=== PATIENT | male | born 1950 | race Caucasian/White ===

== ENCOUNTER 2017-05-19 09:13 | Emergency (ER) | payer MEDICARE, OTHER ==
[~2017-05-19] VITALS: Ht 170.2 cm; Wt 95.7 kg
[~2017-05-19 09:13] MED LIST: ALL DAY ALLERGY10 MG PO; MONTELUKAST SOD10 MG PO; OMEPRAZOLE20 MG PO; PERCOCET 7.5-31 EACH PO; PRAMIPEXOLE DI1.5 MG PO; SYMBICORT 16010.2 GM INH; TUMS200 MG PO
--- OUTSIDE RECORDS SUMMARY | 2017-05-19 09:21 | XMS | Clinical Summary ---
Demographics + + + | Address | [address] | | | [place] [address] | + + + | Home Phone | | + + + | Preferred Language | Unknown | + + + | Marital Status | | + + + | Advent Affiliation | 1028 | + + + | Race | Unknown | + + + | Ethnic Group | Unknown | + + + Author + + + | Author | [facility] | + + + | Organization | [facility] | + + + | Address | Unknown | + + + | Phone | Unavailable | + + + Support + + + + + | Name | Relationship | Address | Phone | + + + + + | Latonya Dumont | ECON | [address] | | | | | [place] | | | | | [address] | | + + + + + Care Team Providers + +------+ + | Care Vessel Slagman Name | Role | Phone | + +------+ + | Baldo Bennett DO | PP | | + +------+ + Allergies No Known Allergies Current Medications + + +-------+---------+------+------+-------+ | Prescription | Sig. | Disp. | Refills | Star | End | Statu | | | | | | t | Date | s | | | | | | Date | | | + + +-------+---------+------+------+-------+ | omeprazole | Take 20 mg by mouth | | | | | Activ | | (PRILOSEC) 20 MG | every morning before | | | | | e | | capsule | breakfast. | | | | | | + + +-------+---------+------+------+-------+ | cetirizine | Take 10 mg by mouth | | | | | Activ | | (ZYRTEC) 10 MG | daily. | | | | | e | | tablet | | | | | | | + + +-------+---------+------+------+-------+ | pramipexole | Take 1.5 mg by mouth | | | | | Activ | | (MIRAPEX) 1.5 MG | 3 (three) times | | | | | e | | tablet | daily. | | | | | | + + +-------+---------+------+------+-------+ | montelukast | Take 10 mg by mouth | | | | | Activ | | (SINGULAIR) 10 MG | nightly. | | | | | e | | tablet | | | | | | | + + +-------+---------+------+------+-------+ | calcium carbonate | Take 200 mg by mouth | | | | | Activ | | 1250 MG capsule | as needed. | | | | | e | + + +-------+---------+------+------+-------+ Active Problems Not on file Social History + +-------+ +--------+------+ | Tobacco Use | Types | Packs/Day | Years | Date | | | | | Used | | + +-------+ +--------+------+ | Former Smoker | | | | | + +-------+ +--------+------+ + +---+---+---+ | Smokeless Tobacco: | | | | | Never Used | | | | + +---+---+---+ + + +---------+ + | Alcohol Use | Drinks/We | oz/Week | Comments | | | ek | | | + + +---------+ + | No | | | | + + +---------+ + + + + | Sex Assigned at | Date Recorded | | | | + + + | Not on file | | + + + Last Filed Vital Signs + + + + | Vital Sign | Reading | Time Taken | + + + + | Blood Pressure | 171/83 | 01/25/2015 11:47 PM PST | + + + + | Pulse | 60 | 01/25/2015 11:47 PM PST | + + + + | Temperature | 36.4 C (97.5 F) | 01/25/2015 11:47 PM PST | + + + + | Respiratory Rate | 16 | 01/25/2015 11:47 PM PST | + + + + | Oxygen Saturation | 94% | 01/25/2015 11:47 PM PST | + + + + | Inhaled Oxygen | - | - | | Concentration | | | + + + + | Weight | 91 kg (200 lb 9.9 | 01/25/2015 8:44 PM PST | | | oz) | | + + + + | Height | 170.2 cm (5' 7") | 01/25/2015 8:46 PM PST | + + + + | Body Mass Index | 31.42 | 01/25/2015 8:44 PM PST | + + + + Plan of Treatment Not on file Results Not on filefrom Last 3 Months Insurance + +--------+ +------+-------+ + | Payer | Benefi | Subscriber | Type | Phone | Address | | | t Plan | ID | | | | | | / | | | | | | | Group | | | | | + +--------+ +------+-------+ + | PREMERA | PREMER | xxxxxxxxxxx | | | [address] [address] | | | A BLUE | x | | | [place], [place] | | | CARD | | | | [address] | + +--------+ +------+-------+ + | MEDICARE | MEDICA | xxxxxxxxxx | | | [address] | | | RE | | | | [place] [phone] | | | IP-OP | | | | | + +--------+ +------+-------+ + + +--------+ +--------+ + + | Guarantor Name | Accoun | Relation to | Date | Phone | Billing Address | | | t Type | Patient | of | | | | | | | | | | + +--------+ +--------+ + + | ROSMERY DUMONT | Person | Self [birth year] Home: | [address] | | | al/Fam | | 1951 | [phone] | [place] | | | [place] | | | [phone] | [phone] | + +--------+ +--------+ + +
--- OUTSIDE RECORDS SUMMARY | 2017-05-19 09:21 | XMS | Encounter Summary ---
Demographics + + + | Address | [address] | | | [place] [address] | + + + | Home Phone | | + + + | Preferred Language | Unknown | + + + | Marital Status | | + + + | Baptism Affiliation | 1028 | + + + | Race | Unknown | + + + | Ethnic Group | Unknown | + + + Author + + + | Author | [facility] | | | and [place] | + + + | Organization | [facility] | | | and [place] | + + + | Address | Unknown | + + + | Phone | Unavailable | + + + Support + + +---------+ + | Name | Relationship | Address | Phone | + + +---------+ + | Latonya Dumont | ECON | Unknown | | + + +---------+ + Care Team Providers + +------+ + | Care Cold Storage Superintendent Name | Role | Phone | + +------+ + | Tony Bennett DO | PCP | Unavailable | + +------+ + Reason for Visit + + + | Reason | Comments | + + + | Medication Refill | | + + + Encounter Details +--------+--------+ + + + | Date | Type | Department | Care Team | Description | +--------+--------+ + + + | 03/11/ | Refill | [facility] [place] | Lakhwinder Harris, | Medication Refill | | 2018 | | [address]ULMONARY [address] | [address] | | | | | [place], | [place], [place] | | | | | [place] [address] | [place], [place] | | | | | [phone] | [address] | | | | | | | | +--------+--------+ + + + Social History + + + +--------+ + | Tobacco Use | Types | Packs/Day | Years | Date | | | | | Used | | + + + +--------+ + | Former Smoker | Cigarettes | 1 | 50 | 06/03/1964 - | | | | | | 06/03/2012 | + + + +--------+ + + +------+---+ + | Smokeless Tobacco: | Chew | | Quit: | | Former User | | | 08/04/19 | | | | | 11 | + +------+---+ + + + +---------+ + | Alcohol Use | Drinks/We | oz/Week | Comments | | | ek | | | + + +---------+ + | No | 0 | 0.0 | | | | Standard | | | | | drinks or | | | | | | | | | | equivalen | | | | | t | | | + + +---------+ + + + + | Sex Assigned at | Date Recorded | | | | + + + | Not on file | | + + + as of this encounter Plan of Treatment Not on fileas of this encounter Visit Diagnoses + + | Diagnosis | + + | Extrinsic asthma, severe persistent, uncomplicated | + +"
--- OUTSIDE RECORDS SUMMARY | 2017-05-19 09:21 | XMS | Clinical Summary ---
Demographics + + + | Address | [address] | | | [place] [address] | + + + | Home Phone | | + + + | Preferred Language | Unknown | + + + | Marital Status | | + + + | Mandaen Affiliation | 1028 | + + + | Race | Unknown | + + + | Ethnic Group | Unknown | + + + Author + + + | Author | [facility] | | | and [place] | + + + | Organization | [facility] | | | and [place] [...] Team Providers + +------+ + | Care Hack Saw Operator Name | Role | Phone | + +------+ + | Tony Bennett DO | PP | Unavailable | + +------+ + Allergies No Known Allergies Current Medications + + +---------+---------+------+------+-------+ | Prescription | Sig. | Disp. | Refills | Star | End | Statu | | | | | | t | Date | s | | | | | | Date | | | + + +---------+---------+------+------+-------+ | pramipexole | Take 1.5 mg by mouth | | | | | Activ | | (MIRAPEX) 1.5 MG | Daily. | | | | | e | | tablet | | | | | | | + + +---------+---------+------+------+-------+ | cetirizine | TAKE ONE TABLET BY | 30 | 3 | 06/2 | | Activ | | (ZYRTEC) 10 mg | MOUTH EVERY DAY | tablet | | 2/20 | | e | | tablet | | | | 17 | | | + + +---------+---------+------+------+-------+ | tamsulosin | Take 0.4 mg by mouth | | | 11/ | | Activ | | (FLOMAX) 0.4 mg CAPS | daily (after | | | 3/20 | | e | | | breakfast). | | | 17 | | | + + +---------+---------+------+------+-------+ | SYMBICORT 80-4.5 | INHALE 2 PUFFS TWICE | 3 | 1 | 01/1 | | Activ | | MCG/ACT inhaler | DAILY | Inhaler | | 6/20 | | e | | | | | | 18 | | | + + +---------+---------+------+------+-------+ | albuterol (PROAIR | Inhale 2 puffs into | 3 | 1 | / | | Activ | | HFA) 90 mcg/puff | the lungs every 4 | Inhaler | | 6/20 | | e | | inhalerIndications: | hours as needed for | | | 18 | | | | Extrinsic asthma, | Shortness of Breath. | | | | | | | severe persistent, | | | | | | | | uncomplicated | | | | | | | + + +---------+---------+------+------+-------+ Active Problems + + + | Problem | Noted Date | + + + | Moderate persistent asthma without complication | 02/25/2017 | + + + | ALLERGIC RHINITIS DUE TO POLLEN | | + + + Resolved Problems + +--------+ + | Problem | Noted | Resolved | | | Date | Date | + +--------+ + | ASTHMA, EXTRINSIC | | | | | | 8 | + +--------+ + Encounters +--------+---------+ + + + | Date | Type | Specialty | Care Team | Description | +--------+---------+ + + + | 03/11/ | Refill | | Lakhwinder Harris, | Medication Refill | | 2017 | | | MD | | +--------+---------+ + + + | 02/28/ | Refill | | Lakhwinder Harris, | Medication Refill | | 2017 | | | MD | | +--------+---------+ + + + | 02/25/ | Office | | Lakhwinder Harris, | Moderate persistent | | 2018 | Visit | | MD | asthma without | | | | | | complication | | | | | | (Primary Dx); Need | | | | | | for pneumococcal | | | | | | vaccine | +--------+---------+ + + + from Last 3 Months Immunizations + + + + | Name | Dates Previously Given | Next Due | + + + + | INFLUENZA 63 Y OR >, | 11/06/2016, 12/14/2015, 12/03/2014 | | | TRIVALENT HIGH-DOSE | | | + + + + | PNEUMOCOCCAL | 12/23/2014 | | | CONJUGATE 13-VALENT | | | | (PCV13) | | | + + + + | PNEUMOCOCCAL | 02/25/2017, 11/23/2010 | | | POLYSACCHARIDE | | | | 23-VALENT (PPSV23) | | | + + + + | TDAP, (ADOL/ADULT) | 10/21/2012 | | + + + + | ZOSTER, 1 DOSE | 09/30/2012 | | | (ADULT) | | | + + + + Family History + + +------+ + | Medical History | Relation | Name | Comments | + + +------+ + | Diabetes | Brother | | | + + +------+ + | Diabetes | Brother | | | + + +------+ + | Stroke | Father | | | + + +------+ + | Diabetes | Mother | | | + + +------+ + | Stroke | Mother | | | + + +------+ + | Asthma | Sister | | | + + +------+ + | Diabetes | Sister | | | + + +------+ + | Diabetes | Sister | | | + + +------+ + + +------+ + + | Relation | Name | Status | Comments | + +------+ + + | Brother | | | | + +------+ + + | Brother | | | | + +------+ + + | Father | | | | + +------+ + + | Mother | | | | + +------+ + + | Sister | | Alive | | + +------+ + + | Sister | | Alive | | + +------+ + + Social History + + + [...] 11 | + +------+---+ + + + | Tobacco Cessation: Counseling Given: No | + + + + +---------+ + | Alcohol [...] + + + | Blood Pressure | 124/74 | 02/25/20171440 PST | + + + + | Pulse | 72 | 02/25/20171440 PST | + + + + | Temperature | 36.6 C (97.8 F) | 12/20/20144 PST | + + + + | Respiratory Rate | 16 | 12/20/20144 PST | + + + + | Oxygen Saturation | 96% | 02/25/20171440 PST | + + + + | Inhaled Oxygen | - | - | | Concentration | | | + + + + | Weight | 97.3 kg (214 lb 8.1 | 02/25/20171440 PST | | | oz) | | + + + + | Height | 170.2 cm (5' 7") | 02/25/20171440 PST | + + + + | Body Mass Index | 33.6 | 02/25/20171440 PST | + + + + Plan of Treatment + + + + + | Health Maintenance | Due Date | Last Done | Comments | + + + + + | Hepatitis C | | | | | Screening | 9 | | | + + + + + | COLON CANCER | | | | | SCREENING | 9 | | | | (COLONOSCOPY EVERY | | | | | 10 YEARS 50-75) | | | | + + + + + | Vaccine: | | 10/21/2012 | | | Dtap/Tdap/Td (2 - | 3 | | | | Td) | | | | + + + + + | Vaccine: Zoster | Completed | 09/30/2012 | | + + + + + | Vaccine: Influenza | Completed | 11/06/2016, 12/14/2015, | | | | | 12/03/2014 | | + + + + + | Vaccine: | Completed | 02/25/2017, 12/23/2014, | | | Pneumococcal 65+ | | 11/23/2010 | | | Low/Medium Risk | | | | + + + + + Results Not on filefrom Last 3 Months Insurance + +--------+ +--------+ +---------+ | Payer | Benefi | Subscriber | Type | Phone | Address | | | t Plan | ID | | | | | | / | | | | | | | Group | | | | | + +--------+ +--------+ +---------+ | MEDICARE | MEDICA | xxxxxxxxxx | Medica | [phone] | | | RE | | re | [phone] | | | | PART A | | | | | | | AND B | | | | | + +--------+ +--------+ +---------+ | [employer] [place] | UNITED | xxxxxxxx | Indemn | [phone] | | | OF | | ity | 1000 | | | | [place] | | | | | | | MDCR | | | | | | | SUPPL | | | | | + +--------+ +--------+ +---------+ + +--------+ +--------+ + + | Guarantor Name | Accoun | Relation to | Date | Phone | Billing Address | | | t Type | Patient | of | | | | | | | | | | + +--------+ +--------+ + + | ROSMERY DUMONT | Person | Self [birth year] | Work: | [address] | | | al/Oral | | 1951 | [phone] | [place] [address] | | | [place] | | | [address] Home: | | | | | | | | | | | | | | [phone] | | | | | | | [address] | | + +--------+ +--------+ + +
--- OUTSIDE RECORDS SUMMARY | 2017-05-19 09:22 | XMS | Encounter Summary ---
Demographics + + + | Address | [address] | | | [place] [address] | + + + | Home Phone | | + + + | Preferred Language | Unknown | + + + | Marital Status | | + + + | Buddhism Affiliation | 1028 | + + + | Race | Unknown | + + + | Ethnic Group | Unknown | + + + Author + + + | Author | [facility] | | | and [place] | + + + | Organization | [facility] | | | and [place] [...] Team Providers + +------+ + | Care Technical Healthcare Consultant Name | Role | Phone | + [...] Description | +--------+--------+ + + + | 02/28/ | Refill | [facility] [place] | Lakhwinder Harris, | Medication Refill | | 2018 | | PULMONARY [address] | [address] | | | | | [place], | [place], [place] | | | | | [place] [address] | [place], [place] | | | | | [phone] | [address] | | | | | | | [...] on fileas of this encounter Visit Diagnoses Not on filein this encounter"
--- OUTSIDE RECORDS SUMMARY | 2017-05-19 09:23 | XMS | Clinical Summary ---
Demographics + + + | Address | [address] | | | [place] [address] | + + + | Home Phone | | + + + | Preferred Language | Unknown | + + + | Marital Status | | + + + | Gnosticist Affiliation | 1028 | + + + | Race | Unknown | + + + | Ethnic Group | Unknown | + + + Author + + + | Author | [facility] | + + + | Organization | [facility] | + + + | Address | Unknown | + + + | Phone | Unavailable | + + + Support + + + + + | Name | Relationship | Address | Phone | + + + + + | Latonya Dumont | ECON | [address] | | | | | [place] | | | | | [address] | | + + + + + Care Team Providers + +------+ + | Care Electric Truck Driver Name | Role | Phone | + [...] | xxxxxxxxxxx | | | [address] [address] | | | A BLUE | x | | | [place], [place] | | | CARD | | | | [phone] | + +--------+ +------+-------+ + | MEDICARE | MEDICA | xxxxxxxxxx | | | [address] | | | RE | | | | [place] [address] | | | IP-OP | | | [...] | | al/Fam | | 1951 | [phone] | [place] | | | [place] | | | [address] | [phone] | + +--------+ +--------+ + +
--- OUTSIDE RECORDS SUMMARY | 2017-05-19 09:23 | XMS | Encounter Summary ---
Demographics + + + | Address | [address] | | | [place] [address] | + + + | Home Phone | | + + + | Preferred Language | Unknown | + + + | Marital Status | | + + + | Baptist Affiliation | 1028 | + + + | Race | Unknown | + + + | Ethnic Group | Unknown | + + + Author + + + | Author | [facility] | | | and [place] | + + + | Organization | [facility] | | | and [place] | [...] Team Providers + +------+ + | Care Mechanical Adjuster Name | Role | Phone | + [...] | PULMONARY [address] | [address] | | | | | [place], | [place], [place] | | | | | [place] [address] | [place], [place] | | | | | [phone] | [address] | | | | | | | [...]
--- OUTSIDE RECORDS SUMMARY | 2017-05-19 09:23 | XMS | Encounter Summary ---
Demographics + + + | Address | [address] | | | [place] [address] | + + + | Home Phone | | + + + | Preferred Language | Unknown | + + + | Marital Status | | + + + | Roman Catholic Affiliation | 1028 | + + + | Race | Unknown | + + + | Ethnic Group | Unknown | + + + Author + + + | Author | [facility] | | | and [place] | + + + | Organization | [facility] | | | and [place] | [...] Team Providers + +------+ + | Care Product Picker Name | Role | Phone | + [...] | PULMONARY [address] | [address] | | | | | [place], | [place], [place] | | | | | [place] [address] | [place], [place] | | | | | [phone] | [address] | | | | | | | [...]
--- OUTSIDE RECORDS SUMMARY | 2017-05-19 09:23 | XMS | Clinical Summary ---
Demographics + + + | Address | [address] | | | [place] [address] | + + + | Home Phone | | + + + | Preferred Language | Unknown | + + + | Marital Status | | + + + | Islam Affiliation | 1028 | + + + | Race | Unknown | + + + | Ethnic Group | Unknown | + + + Author + + + | Author | [facility] | | | and [place] | + + + | Organization | [facility] | | | and [place] [...] Team Providers + +------+ + | Care Administrative Resident Name | Role | Phone | + [...] | MEDICA | xxxxxxxxxx | Medica | [phone] | | | | RE | | re | [phone] | | | | PART A | | | | | | | AND B | | | | | + +--------+ +--------+ +---------+ | [employer] [place] | UNITED | xxxxxxxx | Indemn | [phone] | | | | OF | | ity | [address] | | | | [place] | | | | | | | [...] | | al/Oral | | 1951 | [phone] | [place] [address] | | | [place] | | | [address] Home: | | | | | | | | | | | | | | [phone] | | | | | | | [address] | | + +--------+ +--------+ + +
--- OUTSIDE RECORDS SUMMARY | 2017-05-19 09:23 | XMS | Encounter Summary ---
Demographics + + + | Address | [address] | | | [place] [address] | + + + | Home Phone | | + + + | Preferred Language | Unknown | + + + | Marital Status | | + + + | Rastafarian Affiliation | 1028 | + + + | Race | Unknown | + + + | Ethnic Group | Unknown | + + + Author + + + | Author | [facility] | | | and [place]ana | + + + | Organization | [facility] | | | and Cliffordana [...] Team Providers + +------+ + | Care Technician Name | Role | Phone | + +------+ + | Tony Bennett DO | PCP | Unavailable | + +------+ + Reason for Visit +--------+ + | Reason | Comments | +--------+ + | Asthma | Yearly | +--------+ + Encounter Details +--------+---------+ + + + | Date | Type | Department | Care Team | Description | +--------+---------+ + + + | 02/25/ | Office | [facility] [place] | Lakhwinder Harris, | Moderate persistent | | 2018 | Visit | PULMONARY [address] | asthma without | | | | [place], | [place], Level [place] | complication | | | | [place] [address] | [place], [place] | (Primary Dx); Need | | | | [phone] | [phone] | for pneumococcal | | | | | | vaccine | +--------+---------+ + + + Social History + + [...] + + + as of this encounter Last Filed Vital Signs + + + + | Vital Sign | Reading | Time Taken | + + + + | Blood Pressure | 124/74 | 02/25/20171440 PST | + + + + | Pulse | 72 | 02/25/20171440 PST | + + + + | Temperature | - | - | + + + + | Respiratory Rate | - | - | + + + + | Oxygen Saturation | 96% | 02/25/20171440 PST | + + + + | Inhaled Oxygen | - | - | | Concentration | | | + + + + | Weight | 97.3 kg (214 lb 8.1 | 02/25/2017 144 PST | | | oz) | | + + + + | Height | 170.2 cm (5' 7") | 02/25/2017 1441 PST | + + + + | Body Mass Index | 33.6 | 02/25/2017 1441 PST | + + + + in this encounter Instructions Patient Instructions - Lakhwinder Harris MD - 02/25/2017 1500 PST Asthma (Adult) Asthma is a disease where the medium and small air passages within the lung go into spasm and restrict the flow of air. Inflammation and swelling of the airways cause further restri ction. During an acute asthma attack, these factors cause difficulty breathing, wheezing, co ugh and chest tightness. An asthma attack can be triggered by many things. Common triggers include infections such a s the common cold, bronchitis, pneumonia. Irritants such as smoke or pollutants in the air, emotional upset, and exercise can also trigger an attack. Inmany adults with asthma, aller gies todust, mold, pollen and animal dander can cause an asthma attack. Skipping doses of daily asthma medicine can also bring on an asthma attack. Asthma can be controlled using theproper medicines prescribed by your healthcare provider and avoiding exposure to known triggers including allergens and irritants. Home care Take prescribed medicine exactly at the times advised. If you need medicine such as from a hand held inhaler or aerosol breathing machine more than every 4 hours, contact your [facility] provider or seek immediate medical attention. If prescribed an antibiotic or predniso ne, take all of the medicine as prescribed, even if you are feeling better after a few days. Do not smoke. Avoid being exposed to the smoke of others. Some people with asthma have worsening of their symptoms when they take aspirin and non- steroidal or fever-reducing medicines like ibuprofen and naproxen. Talk to your healthcare p alison if you think this may apply to you. Follow-up care Follow up with your healthcare provider, or as advised. Always bring all of your current me dicines to any appointments with your healthcare provider. Also bring a complete list of med ications eventhose not taken for asthma. If you do not already have one, talk to your [facility] provider about developing a personalized "Asthma Action Plan." A pneumococcal (pneumonia)vaccine and yearly flu shot (every fall) are recommended. Ask y our doctor about this. When to seek medical advice Call your healthcare provider right away if any of these occur: Increased wheezing or shortness of breath Need to use your inhalers more often than usual without relief Fever of 100.4F (38C) or higher, or as directed by your healthcare provider Coughing up lots of dark-colored or bloody sputum (mucus) Chest pain with each breath If you use a peak flow meter as part of an Asthma Action Plan, and you are still in the yellow zone (50% to 80%) 15 minutes after using inhaler medicine. Call 911 Call 911 if any of the following occur Trouble walking or talking because of shortness of breath If you use a peak flow meter as part of an Asthma Action Plan andyou are still in the red zone (less than 50%) 15 minutes after using inhaler medicine Lips or fingernails turning mosley or blue Date Last Reviewed: 01/15/201519997889-3027 [employer]. [address] [place] [address], [place] [address]. All righ ts reserved. This information is not intended as a substitute for professional medical care. Always follow your healthcare professional's instructions. in this encounter Progress Notes Lakhwinder Harris MD - 02/25/2017 1500 PSTFormatting of this note may be different from bri larose original. Pulmonary Follow Up 02/25/2017 HPI Gonzalo Dumont is a 66 y.o. male patient of Tony Bennett here today for follow u p of asthma. The patient's last visit was on 03/05/16. Since the last visit he feels like their asthma h as been stable. They have not had any acute illnesses resulting in worsening asthma symptom s. They have not required a burst of prednisone since our last appointment. Specifically 0 tapers of prednisone have occurred over the interval. Lastly Gonzalo notes 0 ED visits and 0 hospitalizations for asthma have occurred since the last appointment. At the time of the patient's last clinic appointment Symbicort was discontinued and Pulmico rt initiated. Unfortunately Gonzalo developed worsening asthma symptoms involving shortness of breath and wheezing. He went back on low-dose Symbicort and his symptoms returned to pradeep real.. Their controller medication regimen currently consists of Symbicort. They do feel like thi s medication regimen is effective at controlling their symptoms. Currently Gonzalo is using their rescue albuterol, ProAir, 15-20 times a year. Usually with cold symptoms. Triggers of their asthma include pollens and cold air. He does not have nocturnal symptoms of wheezing, chest tightness or cough. He does not measure their peak flow. Currently Gonzalo reports being able to walk many miles at their own pace on level ground be fore becoming symptomatic. They are not exercising regularly. Current exercise consists of walking some. He does not cough chronically, and does not produce mucous. Gonzalo does not report symptoms of heartburn or acid reflux. They have not had recent sympt oms of nasal congestion, runny nose or post nasal drip. New triggers since the last appointment include none. Gonzalo Dumont is not smoking cigarettes. The patient have received this year's influenza vaccination. They are up not to date with their Pneumovax but is for Prevnar 13. Past Medical History Past Medical History: Diagnosis Date Acid reflux disease Allergic rhinitis Asthma Obesity Allergies: No Known Allergies Medications: Current Outpatient Prescriptions: albuterol (PROAIR HFA) 90 mcg/puff inhaler, Inhale 2 puffs into the lungs every 4 hour s as needed for Shortness of Breath., Disp: 1 Inhaler, Rfl: 3 cetirizine (ZYRTEC) 10 mg tablet, TAKE ONE TABLET BY MOUTH EVERY DAY, Disp: 30 tablet, Rfl: 3 pramipexole (MIRAPEX) 1.5 MG tablet, Take 1.5 mg by mouth Daily., Disp: , Rfl: SYMBICORT 80-4.5 MCG/ACT inhaler, INHALE 2 PUFFS TWICE DAILY, Disp: 3 Inhaler, Rfl: 1 tamsulosin (FLOMAX) 0.4 mg CAPS, Take 0.4 mg by mouth daily (after breakfast)., Disp: , Rfl: Immunizations: Immunization History Administered Date(s) Administered INFLUENZA 65 Y OR >, TRIVALENT HIGH-DOSE 12/03/2014, 12/14/2015, 11/06/2016 PNEUMOCOCCAL CONJUGATE 13-VALENT (PCV13) 12/23/2014 PNEUMOCOCCAL POLYSACCHARIDE 23-VALENT (PPSV23) 11/23/2010 TDAP, (ADOL/ADULT) 10/21/2012 ZOSTER, 1 DOSE (ADULT) 09/30/2012 Objective BP 124/74 | Pulse 72 | Ht 1.702 m (5' 7") | Wt 97.3 kg (214 lb 8.1 oz) | SpO2 96% | BM I 33.60 kg/m Appearance: Alert, cooperative, no distress, appears stated age. Head: Normocephalic, without obvious abnormality, atraumatic. Eyes: PERRL, conjunctiva/corneas clear. Nose: Nares normal, septum midline, mucosa normal, no drainage or sinus tenderness. Throat: Lips, mucosa, and tongue normal. Teeth/dentures normal. No thrush. Neck: Supple, symmetrical, no JVD. Lungs: No accessory muscle use, breath sounds are clear to auscultation bilaterally, no w heezes, crackles or rhonchi. No dullness to percussion. Chest Wall: No tenderness or deformity. Heart: Regular rate and rhythm, S1, S2 normal, no murmur, rub or gallop. Extremities: Extremities normal, atraumatic, no cyanosis, clubbing. none edema. Skin: Warm and dry. Lymph nodes: Cervical and supraclavicular nodes normal. Neurologic: Gait normal. Data: None Assessment 1. Asthma moderate persistent. 12 months ago a trial of discontinuing Symbicort and ini tiating Pulmicort was associated with worsening asthma symptoms. Gonzalo went back to using Symbicort and notes good control of his asthma. Though the patient does have intermittent u pper respiratory tract infections requiring increase use of rescue albuterol these illnesses do not appear to cause worsening asthma requiring prednisone. The patient is up-to-date with respect to his Prevnar and seasonal influenza vaccination. Gonzalo is in need of a pneumococcal 23 booster. Plan 1. Continue Symbicort 80/4.5, 2 puffs inhaled twice daily. 2. High-dose seasonal influenza vaccination November 2017. 3. Pneumovax 23 today. 4. The interval between pulmonary clinic follow-up appointments will remain at 12 months. CC: Tony Curtis this encounter Plan of Treatment Not on fileas of this encounter Visit Diagnoses + + | Diagnosis | + + | Moderate persistent asthma without complication - Primary | + + | Unspecified asthma | + + | Need for pneumococcal vaccine | + + | Need for prophylactic vaccination against streptococcus pneumoniae (pneumococcus) | + +
--- OUTSIDE RECORDS SUMMARY | 2017-05-19 09:23 | XMS | Encounter Summary ---
Demographics + + + | Address | [address] | | | [place] [address] | + + + | Home Phone | | + + + | Preferred Language | Unknown | + + + | Marital Status | | + + + | Lutheran Affiliation | 1028 | + + + | Race | Unknown | + + + | Ethnic Group | Unknown | + + + Author + + + | Author | [facility] | | | and Cliffordana | + + + | Organization | [facility] | | | and Cliffordana [...] Team Providers + +------+ + | Care Dedicated Regional Driver Name | Role | Phone | [...] | asthma without | | | | [place], | [place], Level II | complication | | | | [place] [address] | [place], [place] | (Primary Dx); Need | | | | [phone] | [phone] | for pneumococcal | | | | [...] more than every 4 hours, contact your [facility] provider or seek immediate medical attention. If [...] not already have one, talk to your [facility] provider about developing a personalized "Asthma Action [...] turning mosley or blue Date Last Reviewed: 01/15/201519995885-9210 [employer]. [address] [place] [address], [place] [address]. All righ ts reserved. This information is not intended as a substitute for professional medical care. Always follow your healthcare professional's instructions. in this encounter Progress Notes Lakhwinder Harris MD - 02/25/2017 1500 PSTFormatting of this note may be different from bri larose original. Pulmonary Follow Up 02/25/2017 HPI Goznalo Dumont is a 66 y.o. male patient [...]
--- NOTE | 2017-05-19 16:51 | EKG ---
[facility] [address] [facility] [place] [address] Signed Sinus rhythm with premature supraventricular complexes and with frequent premature ventricular complexes Left axis deviation Abnormal ECG No previous ECGs available Confirmed by AMILCAR HARTLEY MD ([id number]) on 05/19/2017 4:51:03 PM Electronically Signed By: AMILCAR HARTLEY MD 05/19/17 1651 PATIENT NAME: ROSMERY CASAS JOHN Electrocardiogram DATE OF : 46 PHYSICIAN: AMILCAR HARTLEY MD REPORT #: [id number] REPORT IS CONFIDENTIAL AND NOT TO BE RELEASED WITHOUT AUTHORIZATION
== END 2017-05-19 15:07 | disposition short-term general hospital (02) ==
LOC: ED 09:13
DX: I49.3 Ventricular premature depolarization (principal); K21.9 Gastro-esophageal reflux disease without esophagitis; J45.909 Unspecified asthma, uncomplicated; I10 Essential (primary) hypertension; Z87.891 Personal history of nicotine dependence; Z79.899 Other long term (current) drug therapy
CPT/HCPCS: 70450; 71046; 80053; 82550; 82553; 83874; 84484; 85025; 93005; 93010; 99285

== ENCOUNTER 2020-08-08 06:20 | Day surgery (SDC) | payer OTHER, MEDICARE ==
[~2020-08-08] VITALS: Ht 170.2 cm; Wt 96.8 kg
[~2020-08-08 06:20] MED LIST changes: +COZAAR100 MG PO; +FLOMAX0.4 MG PO; +PREVACID15 MG PO
[2020-08-08] MEDS ORDERED: TRAMADOL HCL50 MG PO (08:56)
--- NOTE | 2020-08-08 09:08 | NUR ---
08/08/20 0908 Karen Longo 0855 PT TO PACU SLEEPING ORAL AIRWAY IN PLACE, ICE TO LT HAND
--- NOTE | 2020-08-08 12:15 | NUR ---
PT ALERT ORIENTED AND SUPPORTED BY HIS . BOTH SEEMED SOMEWHAT SURPRISED BY MY PRESENCE, NOT TOO INTERESTED IN VISIT. GAVE BLESSING, WILL FOLLOW NEEDED
--- NOTE | 2020-08-11 08:11 | OR ---
[facility] [address] [place], [place] [address] Signed DATE OF OPERATION: 08/08/2020 SURGEON: Thao Longo MD PREOPERATIVE DIAGNOSIS: Left carpal tunnel syndrome. POSTOPERATIVE DIAGNOSIS: Left carpal tunnel syndrome. PROCEDURE PERFORMED: Left carpal tunnel release. BELT NOTCHER: None. ANESTHESIA: [place] block. TOURNIQUET TIME: 20 minutes. BRIEF HISTORY: Rosmery is a 69-year-old male with pain and numbness and tingling in his left wrist. Nerve conduction studies confirmed the presence of carpal tunnel. Risks and benefits of operative versus nonoperative treatment were discussed with him and he elected to proceed. DESCRIPTION OF PROCEDURE: Once consent was obtained, he was taken to the operating room. After adequate anesthesia, he was placed on the hand table. [place] block was established by Anesthesia and the arm was prepped and draped in a standard sterile fashion. The carpal tunnel was approached through a 1.5 cm incision in the wrist crease carried through skin and subcutaneous tissue. The palmaris longus was identified, retracted, and protected. The transverse carpal ligament was identified under loupe magnification and released proximally a centimeter, distally to the distal extent of the transverse carpal ligament. This was palpated using a [place] and found to be completely released. The wound was copiously irrigated, closed with 3-0 nylon, was injected with 8 mL of 0.25% plain Marcaine. Wound was dressed with bacitracin, Adaptic, 4 x 10 gauze. He tolerated the Electronically Signed By: THAO LONGO MD 08/11/20 0811 PATIENT NAME: ROSMERY CASAS OPERATIVE REPORT DATE OF : 46 REPORT #: [id number] PHYSICIAN: THAO LONGO MD PCP: ORION RAY PA-C REPORT IS CONFIDENTIAL AND NOT TO BE RELEASED WITHOUT AUTHORIZATION [facility] [address] [facility] [place] [address] Signed procedure well. All sponge, needle, and instrument counts were correct. Thao Longo MD BA/VICTOR HUGOL /[id number] Copies: ~ Electronically Signed By: THAO LONGO MD 08/11/20 0811 PATIENT NAME: ROSMERY CASAS OPERATIVE REPORT DATE OF : 46 REPORT #: [id number] PHYSICIAN: THAO LONGO MD PCP: ORION RAY PA-C REPORT IS CONFIDENTIAL AND NOT TO BE RELEASED WITHOUT AUTHORIZATION
== END 2020-08-08 09:50 | disposition home or self-care (01) ==
LOC: DS 06:20
PROVIDERS: ATTEND Specialist
PROC: 01N50ZZ Release Median Nerve, Open Approach (ICD-10-PCS; principal; 2020-08-08 08:30)
DX: G56.03 Carpal tunnel syndrome, bilateral upper limbs (principal); Z87.891 Personal history of nicotine dependence
CPT/HCPCS: 01810; J0690; J2704; J7121

== ENCOUNTER 2021-01-23 06:20 | Day surgery (SDC) | payer OTHER, MEDICARE ==
[~2021-01-23] VITALS: Ht 170.2 cm; Wt 96.2 kg
[~2021-01-23 06:20] MED LIST changes: +TRAMADOL HCL50 MG PO
[2021-01-23] MEDS ORDERED: TRAMADOL HCL50 MG PO (09:00)
--- NOTE | 2021-01-24 20:35 | EKG ---
[facility] [address] [facility] [place] [address] Signed Sinus rhythm with frequent and consecutive premature ventricular complexes Pulmonary disease pattern Right bundle branch block Left anterior fascicular block Bifascicular block Abnormal ECG When compared with ECG of 04-AUG-2020 16:32, premature ventricular complexes are now present premature atrial complexes are no longer present Confirmed by ELISA VALERIO DO ([id number]) on 01/24/2021 8:35:30 PM Electronically Signed By: ELISA VALERIO DO 01/24/212034 PATIENT NAME: ROSMERY CASAS Electrocardiogram DATE OF : 46 PHYSICIAN: ELISA VALERIO DO REPORT #: [id number] REPORT IS CONFIDENTIAL AND NOT TO BE RELEASED WITHOUT AUTHORIZATION
--- NOTE | 2021-01-26 07:15 | OR ---
[facility] [address] [place], [place] [address] Signed DATE OF OPERATION: 01/23/2021 SURGEON: Thao Longo MD PREOPERATIVE DIAGNOSIS: Carpal tunnel syndrome, right. POSTOPERATIVE DIAGNOSIS: Carpal tunnel syndrome, right. PROCEDURE PERFORMED: Right carpal tunnel release. ANESTHESIA: [place] block. DIGITAL MARKETING PROGRAM MANAGER: None. TOURNIQUET TIME: 12 minutes. BRIEF HISTORY: Rosmery is a 70-year-old gentleman with bilateral carpal tunnel. He had undergone successful left release. Risks and benefits of operative treatment were discussed with him and he elected to proceed. DESCRIPTION OF PROCEDURE: Once consent was obtained, he was taken to the operating room. After adequate anesthesia, he was placed on the operating room table. All downside pressure points were well padded. The arm was prepped and draped in a standard sterile fashion. 1.5 cm incision was made in the distal wrist crease, carried through skin and subcutaneous tissue. Palmaris longus was identified, retracted, and protected. Transverse carpal ligament was entered and the ligament was released proximally about 1.5 cm under loupe magnification. Distally, it was released to the distal extent again under loupe magnification. It was palpated using a [place] and found to be completely released. The nerve was a bit swollen and did bulge up a little bit at the end of the procedure. was noted to refill. The wound was copiously irrigated with normal saline, closed with 3-0 nylon and injected with 7 mL 0.25% Marcaine plain. Wound was dressed with bacitracin, Adaptic, 4 x 8s, and gauze. He tolerated the procedure well. All Electronically Signed By: THAO LONGO MD 01/26/21 0715 PATIENT NAME: ROSMERY CASAS OPERATIVE REPORT DATE OF : 46 REPORT #: [id number] PHYSICIAN: THAO LONGO MD PCP: ORION RAY PA-C REPORT IS CONFIDENTIAL AND NOT TO BE RELEASED WITHOUT AUTHORIZATION [address] [place], [place] [address] Signed sponge, needle, and instrument counts were correct. Thao Longo MD BA/MODL /[id number] Copies: ~ Electronically Signed By: THAO LONGO MD 01/26/21 0715 PATIENT NAME: ROSMERY CASAS OPERATIVE REPORT DATE OF : 46 REPORT #: [id number] PHYSICIAN: THAO LONGO MD PCP: ORION RAY PA-C REPORT IS CONFIDENTIAL AND NOT TO BE RELEASED WITHOUT AUTHORIZATION
== END 2021-01-23 09:25 | disposition home or self-care (01) ==
LOC: DS 06:20
PROVIDERS: ATTEND Specialist
PROC: 01N50ZZ Release Median Nerve, Open Approach (ICD-10-PCS; principal; 2021-01-23 08:15)
DX: G56.01 Carpal tunnel syndrome, right upper limb (principal); Z87.891 Personal history of nicotine dependence
CPT/HCPCS: 01810; 93005; 93010; J0690; J1885; J2704; J7121

== ENCOUNTER 2022-03-09 12:02 | Emergency (ER) | payer OTHER, MEDICARE ==
[~2022-03-09] VITALS: Ht 170.2 cm; Wt 99.8 kg
[2022-03-09] MEDS ORDERED: PREDNISONE10 MG PO (15:02)
[2022-03-09] MEDS ORDERED: PREDNISONE20 MG PO (16:41)
[2022-03-09] MEDS ORDERED: METHYLPREDNISOLO4 M1 PO (16:41)
--- NOTE | 2022-03-09 22:10 | EKG ---
[facility] [address] [facility] [place] [address] Signed Sinus rhythm with occasional premature ventricular complexes Pulmonary disease pattern Right bundle branch block Left anterior fascicular block Bifascicular block Abnormal ECG When compared with ECG of 23-JAN-2021 06:45, No significant change was found Confirmed by ESTELLA HERRERA MD ([id number]) on 03/09/2022 10:09:55 PM Electronically Signed By: ESTELLA HERRERA MD 03/09/22 2210 PATIENT NAME: ROSMERY CASASN Electrocardiogram DATE OF : 46 PHYSICIAN: ESTELLA HERRERA MD REPORT #: [id number] REPORT IS CONFIDENTIAL AND NOT TO BE RELEASED WITHOUT AUTHORIZATION
== END 2022-03-09 16:52 | disposition home or self-care (01) ==
LOC: ED 12:02
DX: J45.901 Unspecified asthma with (acute) exacerbation (principal); K21.9 Gastro-esophageal reflux disease without esophagitis; I10 Essential (primary) hypertension; Z87.891 Personal history of nicotine dependence; Z79.899 Other long term (current) drug therapy; Z20.822 Contact with and (suspected) exposure to COVID-19
CPT/HCPCS: 36415; 71045; 80053; 83735; 83880; 84484; 85025; 87502; 93005; 93010; 94640; 99285-25; C9803; J1100; U0003

== ENCOUNTER 2022-03-30 09:41 | Emergency (ER) | payer OTHER, MEDICARE ==
[~2022-03-30] VITALS: Ht 170.2 cm; Wt 98.4 kg
[~2022-03-30 09:41] MED LIST changes: +METHYLPREDNISOLO4 M1 PO; +PREDNISONE10 MG PO; +PREDNISONE20 MG PO
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
[2022-03-30] MEDS ORDERED: PREDNISONE20 MG PO (11:09)
[2022-03-30] MEDS ORDERED: HYDROCODON-ACE1 EA10 PO (11:09)
== END 2022-03-30 11:35 | disposition home or self-care (01) ==
LOC: ED 09:41
DX: S22.32XA Fracture of one rib, left side, initial encounter for closed fracture (principal); J45.901 Unspecified asthma with (acute) exacerbation; I10 Essential (primary) hypertension; W19.XXXA Unspecified fall, initial encounter; Z87.891 Personal history of nicotine dependence; Z79.52 Long term (current) use of systemic steroids
CPT/HCPCS: 71101; 94640; A9270; J7512

== ENCOUNTER 2023-02-04 09:44 | Emergency (ER) | payer OTHER, MEDICARE ==
[~2023-02-04] VITALS: Ht 170.2 cm; Wt 99.3 kg
[~2023-02-04 09:44] MED LIST changes: +HYDROCODON-ACE1 EA10 PO; +METOPROLOL SUCC25 MG PO; +PROSCAR5 MG PO; +VENTOLIN HFA18 GM INH
[2023-02-04 11:01] LABS: EOSINOPHILS 6.5 % (0-6); HEMATOCRIT 44.8 % (35.0-50.0); HEMOGLOBIN 14.8 g/dL (12.0-18.0); LYMPHOCYTES 17.8 % (24-44); MCH 31.5 (27-36); MCHC 33.1 g/dl (30-36); MCV 95.1 fl (81-99); MONOCYTES 8.7 % (0-12); PLATELET COUNT 215 K/uL (140-440); RBC 4.71 M/ul (4.3-5.7); RDW 13.7 (10.5-15.0)
[2023-02-04 11:15] LABS: ALBUMIN 3.2 g/dL (3.4-5.0); ALBUMIN/GLOBULIN RATIO 0.89 (1.1-2.4); ANION GAP 7.5 (7-21); BILIRUBIN, TOTAL 0.6 ng/dL (0.2-1.0); BUN/CREATININE RATIO 12.12 (6.0-28.6); CALCIUM 8.8 mg/dL (8.5-10.1); CREATININE, SERUM 1.32 mg/dL (0.70-1.30); POTASSIUM 4.5 mmol/L (3.5-5.1); PROTEIN, TOTAL 6.8 g/dL (6.4-8.2)
[2023-02-04] MEDS ORDERED: ELIQUIS5 MG PO (11:50)
[2023-02-04 12:16] VITALS: BP 141/75
== END 2023-02-04 12:16 | disposition home or self-care (01) ==
LOC: ED 09:44
PROVIDERS: Emergency Medicine
DX: I82.421 Acute embolism and thrombosis of right iliac vein (principal); I82.491 Acute embolism and thrombosis of other specified deep vein of right lower extremity; I10 Essential (primary) hypertension; K21.9 Gastro-esophageal reflux disease without esophagitis; Z87.891 Personal history of nicotine dependence
CPT/HCPCS: 36415; 80053; 85025; 93971; 99284-25

== ENCOUNTER 2023-10-10 05:40 | Day surgery (SDC) | payer OTHER, MEDICARE ==
[2023-09-27 14:08] VITALS: BP 124/73
[2023-10-10] VITALS (7 sets, daily range): BP systolic 139–169; BP diastolic 65–94
[~2023-10-10] VITALS: Ht 170.2 cm; Wt 95.9 kg
[~2023-10-10 05:40] MED LIST changes: +ELIQUIS5 MG PO; +FARXIGA10 MG PO; +LACTATED RINGER'S 1,000 ML IV SCH; +STOOL SOFTENER100 MG PO
[2023-10-10] MEDS ORDERED: SODIUM CHLORIDE 0.9% 500 ML IV ONE (05:43)
[2023-10-10] MEDS ORDERED: Ropivacaine HCl 20 MG/10 ML AMP ONE (05:43)
[2023-10-10] MEDS ORDERED: ACETAMINOPHEN 500 MG TAB PO ONE ×2 (06:15→07:15)
[2023-10-10] MEDS ORDERED: propofoL 200 MG/20 ML VIAL ONE ×3 (06:50→08:24)
[2023-10-10] MEDS ORDERED: LIDOCAINE HCL 2% 5 ML SDV ONE (06:50)
[2023-10-10] MEDS ORDERED: BUPIVACAINE 0.75% IN DEXTROSE 2 ML AMP ONE (06:51)
[2023-10-10] MEDS ORDERED: PANTOPRAZOLE SODIUM 40 MG TABEC ONE (06:52)
[2023-10-10] MEDS ORDERED: PANTOPRAZOLE SODIUM 40 MG TABEC PO SCH (07:00)
[2023-10-10] MEDS ORDERED: LIDOCAINE HCL 1% 5 ML SDV INJ ONE (07:00)
[2023-10-10] MEDS ORDERED: IBLOOD GLUCOSE TEST STRIP 1 EA TEST VI PRN (07:00)
[2023-10-10] MEDS ORDERED: INTRA-ARTICULAR ANALGESIC INJECTION XX SCH (07:00)
[2023-10-10] MEDS ORDERED: OXYCODONE HCL 5 MG TAB PO SCH (07:00)
[2023-10-10] MEDS ORDERED: GABAPENTIN 600 MG TAB PO SCH (07:00)
[2023-10-10] MEDS ORDERED: TRANEXAMIC ACID 2,000 MG in SODIUM CHLORIDE 0.9% 100 ML IV SCH (07:00)
[2023-10-10] MEDS ORDERED: CEFAZOLIN SODIUM 2 GM/20 ML SYR IV SCH ×2 (07:00→15:00)
[2023-10-10] MEDS ORDERED: ondansetron HCL 4 MG TAB PO SCH (07:00)
[2023-10-10] MEDS ORDERED: SODIUM CHLORIDE 0.9% 20 ML IV ONE (07:29)
[2023-10-10] MEDS ORDERED: ESMOLOL HCL 100 MG/10 ML VIAL IV ONE (07:29)
--- NOTE | 2023-10-10 07:35 | NUR ---
VISITED DURING SPIRITUAL CARE ROUNDS. PT GONE FOR PROCEDURE, TALKED WITH IN ROOM. DENIED IMMEDIATE NEEDS, MINOR SIGNS OF ANXIETY. ENGRAVER OPTICAL FRAMES PROVIDED SUPPORTIVE PRESENCE, ANXIETY CONTAINMENT, HOSPITALITY, PRAYER. EXPRESSED GRATITUDE.
[2023-10-10] MEDS ORDERED: LACTATED RINGER'S 1,000 ML IV ONE (08:27)
[2023-10-10] MEDS ORDERED: ACETAMINOPHEN500 MG PO (08:58)
[2023-10-10] MEDS ORDERED: HYDROMORPHONE HC4 MG PO (08:58)
[2023-10-10] MEDS ORDERED: HYDROmorphone HCL 4 MG TAB PO PRN (09:00)
[2023-10-10] MEDS ORDERED: KETOROLAC TROMETHAMINE 30 MG/ML VIAL IV PRN (09:00)
[2023-10-10] MEDS ORDERED: KETOROLAC TROMETHAMINE 30 MG/ML VIAL ONE (09:01)
[2023-10-10] MEDS ORDERED: TRANEXAMIC ACID 2,000 MG in SODIUM CHLORIDE 0.9% 100 ML IV ONE (09:28)
--- NOTE | 2023-10-10 09:55 | NUR ---
10/10/23 0955 Kamila Gonazles LE 0900 PT ARRIVED IN PACU WIDE AWAKE C/O R HIP PAIN 03/26. 904 TORADOL GIVEN BY ANESTHESIA. 914 PELVIS XRAY DONE. 919 CRYO CUFF [address]ACED ON R HIP. PAIN DOWN TO 02/23. 929 SITTING UP IN BED SIPPING ON WATER. 0950 TO DS. REPORT GIVEN TO RN. AT BEDSIDE. LE 09 EBL FROM SURGEON 165, EBL FROM ANETHESIA 50
--- NOTE | 2023-10-10 10:15 | NUR ---
ARACELY 0950-PT BACK TO ROOM FROM PACU ON . RECEIVED REPORT FROM MARIA FERNANDA AUGUSTIN. PT IS AWAKE. RESP EVEN AND UNLABORED. DENIES PAIN AND NAUSEA. CRYO CUFF IN PLACE AND RUNNING. PT DRINKING WATER. PROVIDED PT WITH COFFEE. CARON HUGGER TURNED ON, HOB ELEVATED. AT BED SIDE. NO OTHER NEEDS AT THIS TIME. CALL LIGHT WITHIN REACH.
--- NOTE | 2023-10-10 10:55 | NUR ---
LE 1055-PT LAYING IN BED AWAKE. RESP EVEN AND UNLABORED. STATES NO PAIN WHEN LAYING DOWN. DENIES NAUSEA. PT IS DRINKING WATER. GAVE THE PT CRACKERS. CRYO CUFF IN PLACE AND RUNNING. NO OTHER NEEDS AT THIS TIME. AT BEDSIDE. CALL LIGHT WITHIN REACH.
--- NOTE | 2023-10-10 11:02 | NUR ---
LE 1102- ORDERED LUNCH FOR PT. LE 1115-PT WILL NEED TO BE NPO PER DR. HOUGH UNTIL NEXT X-RAY OF R HIP CAN BE DONE. DR. HOUGH WOULD LIKE PT TO WORK WITH PT IN ROOM. DERMATOME LEVEL IS L5.
[2023-10-10] MEDS ORDERED: HYDROmorphone HCL 2 MG TAB PO PRN (12:00)
--- NOTE | 2023-10-10 12:06 | NUR ---
LE 1206-PT LAYING IN BED AWAKE. RESP EVEN AND UNLABORED. STATES NO PAIN WHEN LAYING DOWN BUT HAS PAIN WHEN MOVES RT LEG. CRYO CUFF IN PLACE AND RUNNING. PT WOULD LIKE PAIN MEDICATION BEFORE PHYSICAL THERAPY COMES TO ROOM. LE 1220-PAIN MEDICATION GIVEN PER EMAR. NO OTHER NEEDS AT THIS TIME. CALL LIGHT WITHIN REACH.
--- NOTE | 2023-10-10 12:45 | NUR ---
1245-PT IN ROOM WITH PATIENT. DR. HOUGH STOPS BY PT ROOM. 1250-R HIP X-RAY ORDERED.
--- NOTE | 2023-10-10 13:23 | NUR ---
1323-PHONE CALL TO IMAGING RE X-RAY. THEY WILL BE DOWN SHORTLY. 1338-X-RAY IN ROOM WITH PT. 1400-VO PER DR. HOUGH PT CAN EAT SANDWICH AND START PHYSICAL THERAPY. 1410-MESSAGED PHYSICAL THERAPY PT IS READY. 1418-PHYSICAL THERAPY IN ROOM WITH PT.
--- NOTE | 2023-10-10 13:34 | OR ---
[facility] [address] [facility] [place], [place] [address] Signed DATE OF OPERATION: 10/10/2023 SURGEON: Thao Longo MD PREOPERATIVE DIAGNOSIS: Severe degenerative joint disease, right hip. POSTOPERATIVE DIAGNOSIS: Severe degenerative joint disease, right hip. PROCEDURE PERFORMED: Right total hip arthroplasty. CAR REPOSSESSOR: KAREN Mckeon ANESTHESIA: Spinal. BLOOD LOSS: 165 mL. IMPLANTS: Letty [employer]ur[employer] advanced rather size 6 stem, 54 cup, and -2.5 head. BRIEF HISTORY: Rosmery is a 72-year-old gentleman with progressive worsening of severe arthritis. He had undergone nonoperative treatment without significant relief. Risks, benefits, and alternatives of operative treatment were discussed and they elected to proceed. DESCRIPTION OF PROCEDURE: Once consent was obtained, he was taken to the operating room after adequate anesthesia he was placed on the operating room table, all downside pressure points were well padded. The patient was placed in the left lateral decubitus position with an axillary roll. The hip was prepped and draped in a standard sterile fashion. Two pins for the Noble computer ray were then placed in the posterior aspect of the iliac spine and the hip was approached through standard anterior lateral incision. This was carried through skin and subcutaneous tissue. The IT band was divided longitudinally. The vastus lateralis was divided along the anterior margin of the femur from the tip of the trochanter distally. This was then elevated subperiosteally around the level of the Electronically Signed By: THAO LONGO MD 10/10/23 1334 PATIENT NAME: ROSMERY CASAS OPERATIVE REPORT DATE OF : 46 REPORT #: [id number] PHYSICIAN: THAO LONGO MD PCP: ORION RAY PA-C REPORT IS CONFIDENTIAL AND NOT TO BE RELEASED WITHOUT AUTHORIZATION [facility] [address] [place], [place] [address] Signed lesser trochanter. The gluteus minimus and capsule were then split from the tip of the trochanter to the acetabular rim. This was then peeled off the anterior femoral neck. The superior capsule was released to the posterior corner. The hip was extremely stiff and we were unable to dislocate it safely. In situ cut was then made and the femoral head was continued to be significantly impinged. The soft tissue was completely released around it and it was split in two with the osteotome and removed. The periarticular soft tissue was removed. The acetabulum was then registered with the computer and a good registration was completed. We then, however, brought in the robot and the arm was completely malpositioned and we were unable to get a safe approach with robot. I then elected to hand ream and reamed the acetabulum to a 54 in 40 degrees of abduction and 21 degrees of anteversion. The bone was in excellent condition. We got a good bony contact. The cup was then impacted at the same attitude. The cup was again quite stable. The liner was then impacted. Attention was turned to proximal femur, which was opened using the summer cutter followed by the Jennifer awl. The lateralized reamer was used to ream the greater trochanter and then it was broached up to a 6. The 6 was quite stable and was left in position. The initially high offset and standard offset neck with a -2.5 head was used and the hip was reduced. He had an excellent leg lengths, good stability. Negative Shuck test. The hip was then dislocated. The trial was removed. The final stem was impacted to the same level as the broach. The -2.5 head was impacted onto the stem after cleansing the trunnion. The hip was again reduced, taken through range of motion and found to be stable. The periarticular soft tissues were injected with 100 mL of ropivacaine and Toradol mixture. The wound was then irrigated with one bottle of Surgiphor followed by normal saline. The capsule was closed using #2 FiberWire. The vastus and IT band layers were closed independently using #2 Stratafix. Subcutaneous tissue with 0 Stratafix and skin with 3-0 Stratafix. The wound was sealed with LiquiBand and Steri-Strips. The wound was then dressed with an Acticoat-7 dressing. He was awakened, taken to the recovery room in satisfactory condition. All sponge, needle, and instrument counts correct. Thao Longo MD BA/MODL /[id number] Electronically Signed By: THAO LONGO MD 10/10/23 1334 PATIENT NAME: ROSMERY CASAS OPERATIVE REPORT DATE OF : 46 REPORT #: [id number] PHYSICIAN: THAO LONGO MD PCP: ORION RAY PA-C REPORT IS CONFIDENTIAL AND NOT TO BE RELEASED WITHOUT AUTHORIZATION [address] [address] Signed Copies: ~ Electronically Signed By: THAO LONGO MD 10/10/23 1334 PATIENT NAME: ROSMERY CASASN OPERATIVE REPORT DATE OF : 46 REPORT #: [id number] PHYSICIAN: THAO LONGO MD PCP: ORION RAY PA-C REPORT IS CONFIDENTIAL AND NOT TO BE RELEASED WITHOUT AUTHORIZATION
[2023-10-10] MEDS ORDERED: GABAPENTIN 100 MG CAP PO ONE (14:00)
--- NOTE | 2023-10-10 14:45 | NUR ---
1445-PT BACK TO ROOM FROM PHYSICAL THERAPY.
[2023-10-10] MEDS ORDERED: ACETAMINOPHEN 500 MG TAB PO SCH (15:00)
--- NOTE | 2023-10-10 15:03 | NUR ---
1503-PT LAYING IN BED. RESP EVEN AND UNLABORED. PT RATES PAIN 8/10. PT IS WILLING TO TAKE A DIFFERENT PAIN MEDICATION. DENIES NAUSEA. CRYO CUFF IN PLACE AND RUNNING. DRESSING IS CLEAN, DRY, AND INTACT. AT BEDSIDE. CALL LIGTH WITHIN REACJ. 1505-PHONE CALL TO DR. HOUGH WITH AN UPDATE RE PAIN. VO FOR OXYCODONE 5MG. 1508-PAIN MEDICATION GIVEN PER EMAR.
--- NOTE | 2023-10-10 15:49 | NUR ---
1549-PT STATE NO CHANGE IN PAIN. TYLENOL GIVEN PER EMAR.
--- NOTE | 2023-10-10 16:11 | NUR ---
1611-PT RARTES PAIN 04/24. PT IS READY TO GO HOME. PHONE CALL TO DR. HOUGH. VO PER DR. HOUGH PT MAY GO HOME. PT WOULD LIKE A RX FOR OXYCODONE FOR HOME. DR. HOUGH WILL SEND TO PHARM.
--- NOTE | 2023-10-10 16:28 | NUR ---
1628-WENT OVER DISCHARGE INSTRUCTIONS WITH PT AND . ALL QUESTIONS ANSWERED. WENT OVER ALL DISCHARGE MEDICATIONS. PT AMBULATES TO WHEELCHAIR. PT STATES PAINFUL WHEN WALKING. PT STATES "MUSCLES FEEL TIGHT". ADVISED PT IF PAIN IS NOT DECREASING TO CALL AFTER HOURS NUMBER. PT VERBALIZED UNDERSTANDING. PT HAS 14 STAIRS TO WALK UP. ADVISED PT TO TAKE HIS TIME. PT STATES STAIRS WHERE NOT TO BAD DURING PHYSICAL THERAPY. PT TRANSFERS SELF TO CAR.
--- NOTE | 2023-10-10 16:50 | NUR ---
1313-PT LAYING IN BED AWAKE. RESP EVEN AND UNLABORED. RATES PAIN 5/10. DENIES NAUSEA. CRYO CUFF IN PLACE AND RUNNING. DRESSING IS CLEAN, DRY, AND INTACT. PT STILL NPO AND WAITING ON RIGHT HIP X-RAY. NO OTHER NEEDS AT THIS TIME. CALL LIGHT WITHIN REACH.
== END 2023-10-10 16:28 | disposition home or self-care (01) ==
LOC: DS 05:40
PROVIDERS: ATTEND Specialist
PROC: 0SR90JZ Replacement of Right Hip Joint with Synthetic Substitute, Open Approach (ICD-10-PCS; principal; 2023-10-10 07:00)
DX: M16.11 Unilateral primary osteoarthritis, right hip (principal); I10 Essential (primary) hypertension; K21.9 Gastro-esophageal reflux disease without esophagitis; E11.9 Type 2 diabetes mellitus without complications; Z86.718 Personal history of other venous thrombosis and embolism; Z87.891 Personal history of nicotine dependence; Z79.01 Long term (current) use of anticoagulants; Z79.84 Long term (current) use of oral hypoglycemic drugs; Z79.899 Other long term (current) drug therapy
CPT/HCPCS: 01214; 72170; 97116; 97161; 97530; A9270; C1713; C1776; J0690; J2001; J2704; J2795; J7040; J7121

== ENCOUNTER 2023-12-19 14:30 | Emergency (ER) | payer OTHER, MEDICARE ==
[~2023-12-19] VITALS: Ht 167.6 cm; Wt 93.3 kg
[~2023-12-19 14:30] MED LIST changes: +ACETAMINOPHEN500 MG PO; +HYDROMORPHONE HC4 MG PO; -LACTATED RINGER'S 1,000 ML IV SCH
[2023-12-19] MEDS ORDERED: LACTATED RINGER'S 1,000 ML IV ONE (15:00)
[2023-12-19 15:03] LABS: BASOPHILS 0.8 % (0-2); EOSINOPHILS 2.8 % (0-6); HEMATOCRIT 48.4 % (35.0-50.0); HEMOGLOBIN 16.3 g/dL (12.0-18.0); LYMPHOCYTES 24.6 % (24-44); MCH 32.4 (27-36); MCHC 33.7 g/dl (30-36); MCV 96.1 fl (81-99); MONOCYTES 7.9 % (0-12); NEUTROPHILS 63.9 % (39-80); PLATELET COUNT 278 K/uL (140-440); RBC 5.04 M/ul (4.3-5.7); RDW 14.2 (10.5-15.0)
[2023-12-19 15:14] LABS: INR 1.11 (0.80-1.30); PARTIAL THROMBOPLASTIN TIME 28.1 Sec (22.9-41.3); PROTIME 13.6 Sec (11.2-14.2)
[2023-12-19 15:17] LABS: ALBUMIN 3.5 g/dL (3.4-5.0); ALBUMIN/GLOBULIN RATIO 0.83 (1.1-2.4); ALCOHOL, MEDICAL <3 ng/dL (<3); ALKALINE PHOSPHATASE 111 U/L (46-116); ALT (SGPT) 26 U/L (14-59); ANION GAP 10.7 (7-21); AST (SGOT) 28 U/L (15-37); BILIRUBIN, TOTAL 0.5 ng/dL (0.2-1.0); BUN/CREATININE RATIO 11.03 (6.0-28.6); CALCIUM 9.8 mg/dL (8.5-10.1); CARBON DIOXIDE 31 mmol/L (21-32); CHLORIDE 106 mmol/L (98-107); CREATINE KINASE 289 U/L (39-308); CREATININE, SERUM 1.54 mg/dL (0.70-1.30); GLOMERULAR FILTRATION RATE,EST 47 mL/min (>60); POTASSIUM 4.7 mmol/L (3.5-5.1); PROTEIN, TOTAL 7.7 g/dL (6.4-8.2); UREA NITROGEN 17 mg/dL (7-18)
[2023-12-19 15:39] LABS: ABO O; ANTIBODY SCREEN NEGATIVE; RH POSITIVE
[2023-12-19 16:55] LABS: AMPHETAMINES, URINE NEGATIVE (NEGATIVE); BARBITURATES, URINE NEGATIVE (NEGATIVE); BENZODIAZEPINE, URINE NEGATIVE (NEGATIVE); BUPRENORPHINE, URINE NEGATIVE (NEGATIVE); CANNABINOID, URINE NEGATIVE (NEGATIVE); COCAINE, URINE NEGATIVE (NEGATIVE); ECSTASY, URINE NEGATIVE (NEGATIVE); FENTANYL, URINE NEGATIVE (NEGATIVE); METHADONE, URINE NEGATIVE (NEGATIVE); OPIATES, URINE NEGATIVE (NEGATIVE); OXYCODONE, URINE NEGATIVE (NEGATIVE); PHENCYCLIDINE, URINE NEGATIVE (NEGATIVE)
[2023-12-19] MEDS ORDERED: AMOX TR-K CLV1 EAC1 PO (17:37)
[2023-12-19 17:42] VITALS: BP 162/82
== END 2023-12-19 17:42 | disposition home or self-care (01) ==
LOC: ED 14:30
PROVIDERS: Emergency Medicine
DX: S09.90XA Unspecified injury of head, initial encounter (principal); S50.11XA Contusion of right forearm, initial encounter; J32.8 Other chronic sinusitis; I10 Essential (primary) hypertension; Z87.891 Personal history of nicotine dependence; Z88.8 Allergy status to other drugs, medicaments and biological substances; Z79.01 Long term (current) use of anticoagulants; Z79.899 Other long term (current) drug therapy; W18.30XA Fall on same level, unspecified, initial encounter
CPT/HCPCS: 36415; 70450; 72125; 73090; 80053; 80307; 82553; 85025; 85610; 85730; 86850; 86900; 86901; 99284-25; G0480; J7121